=== PATIENT | male | born 1985 | race Hispanic/Latino ===

== ENCOUNTER 2023-01-19 21:41 | Emergency (ER) | payer BC ==
[~2023-01-19] VITALS: Ht 172.7 cm; Wt 2.5 kg
[2023-01-19] MEDS ORDERED: SODIUM CHLORIDE 0.9% 1000ML 1,000 ML ONE (22:18)
[2023-01-19] MEDS ORDERED: ONDANSETRON HCL INJ 2MG/ML 2ML 2 MG/ML VIAL ONE (22:18)
[2023-01-19] MEDS ORDERED: FAMOTIDINE 20 MG/2 ML VIAL IV ONE (22:21)
[2023-01-19] MEDS ORDERED: FAMOTIDINE 20 MG/2 ML VIAL IV STA (22:38)
[2023-01-19] MEDS ORDERED: ONDANSETRON HCL INJ 2MG/ML 2ML 2 MG/ML VIAL IV STA (22:38)
[2023-01-19] MEDS ORDERED: SODIUM CHLORIDE 0.9% 1000ML 1,000 ML IV ONE (22:45)
[2023-01-19] MEDS ORDERED: ACETAMINOPHEN 325 MG TAB ONE (23:00)
[2023-01-19] MEDS ORDERED: ONDANSETRON ODT4 MG PO (23:53)
[2023-01-19] MEDS ORDERED: FAMOTIDINE40 MG PO (23:57)
== END 2023-01-20 00:27 | disposition home or self-care (01) ==
LOC: FSED 21:54
DX: K29.70 Gastritis, unspecified, without bleeding (principal); F10.20 Alcohol dependence, uncomplicated
CPT/HCPCS: 80048; 80076; 85025; 99283; J2405; J7030